=== PATIENT | male | born 1985 | race Caucasian/White ===

== ENCOUNTER 2022-09-03 07:34 | Emergency (ER) | payer OTHER ==
--- NOTE | 2022-09-03 07:39 | ED Physician Documentation ---
PD HPI LOWER EXT INJURY - Stated complaint Stated Complaint: LT ANKLE INJ - History obtained from History obtained from: Patient - History of Present Illness PD HPI LOW EXT INJURY LOCATION: Left, Ankle Type of injury: Twist ( Patient was stepping out of [employer]icopter and slight uneven ground. He had a inversion injury of the left ankle with significant pain at that time. Still hurting for weightbearing. He works as a [employer] nurse.) Where injury occurred: Work Timing - onset: How many hours ago (3), Today Timing - duration: Hours (3) Timing - details: Abrupt onset, Still present Worsened by: Moving, Other (walking) Associated symptoms: No: Weakness, Numbness, Swelling Similar symptoms before: Has not had sx before Review of Systems Skin: denies: Abrasion (s), Laceration (s) PD PAST MEDICAL HISTORY - Present Medications Home Medications: Ambulatory Orders Medication Instructions Recorded Confirmed No Known Home Medications 09/03/22 09/03/22 - Allergies Allergies/Adverse Reactions: Allergies Allergy/AdvReac Type Severity Reaction Status Date / Time No Known Drug Allergies Allergy Verified 09/03/22 07:39 PD ED PE NORMAL - Vitals Vital signs reviewed: Yes - General General: Alert and oriented X 3, No acute distress, Well developed/nourished - Derm Derm: Normal color, Warm and dry - Extremities Extremities: Other (The left ankle is tender along the lateral malleolus. It is not tender inferiorly. Achilles is firm and nontender. Medial nontender. Good color sensation and capillary refill in the toes.) - Neuro Neuro: No motor deficit, No sensory deficit Results - Vitals Vitals: Vital Signs - 24 hr 09/03/22 07:37 Temperature 36.7 C Heart Rate 67 Respiratory 16 Rate Blood Pressure 147/81 H O2 Saturation 100 Oxygen O2 Source Room air - Rads (name of study) left ankle Relevant Findings:: EMP independent interpretation of test (no fractures) PD Medical Decision Making - ED course Complexity details: reviewed results (no fractures. ), considered differential (Inversion injury of the left ankle with pain at the lateral malleolus. We will get an x-ray. Supportive treatment with splint or brace based on the results. He does not feel he needs crutches.), d/w patient Departure - Departure Disposition: 01 Home, Self Care Clinical Impression: Ankle sprain Qualifiers: Encounter type: initial encounter Involved ligament of ankle: unspecified ligament Laterality: left Qualified Code(s): S93.402A - Sprain of unspecified ligament of left ankle, initial encounter Condition: Stable Record reviewed to determine appropriate education?: Yes Instructions: ED Sprain Ankle Comments: I do not see any fractures on your x-ray. A sprain can still take several weeks to heal and you will want to have the ankle braced when up and around during that timeframe. Ice elevate and rest often initially for swelling. Tylenol ibuprofen or similar if needed for pains. Forms: Activity restrictions
[2022-09-03 07:40] VITALS: BP 147/81
--- NOTE | 2022-09-03 08:36 | XRAY Report ---
PROCEDURE: Ankle 3 View LT INDICATIONS: inversion injury lateral ankle pain TECHNIQUE: 3 views of the ankle were acquired. COMPARISON: None. FINDINGS: Bones: No fractures or dislocations. Slight widening of lateral ankle mortise is seen. No suspiciou s bony lesions. Soft tissues: No tibiotalar joint effusion. Achilles tendon appears normal. IMPRESSION: No acute ankle fracture or dislocation. Slight widening of lateral ankle mortise concerning for synde smotic injury. If indicated, MRI of ankle can be done for further evaluation of internal derangement. Reviewed by: Hammad Vazquez MD on 09/03/2022 8:35 AM PDT Approved by: Hammad Vazquez MD on 09/03/2022 8:35 AM PDT Station ID: [id number]
== END 2022-09-03 08:28 | disposition home or self-care (01) ==
LOC: ED 07:34
DX: S93.402A Sprain of unspecified ligament of left ankle, initial encounter (principal); X50.1XXA Overexertion from prolonged static or awkward postures, initial encounter; Y99.0 Civilian activity done for income or pay
CPT/HCPCS: 1040M; 73610; 99282; 99283